=== PATIENT | female | born 1990 | race Caucasian/White ===

== ENCOUNTER 2017-02-01 08:26 | Observation (INO) ==
[2017-02-01] MEDS ORDERED: MORPHINE SULFATE 2mg INJECTION IVP ONE (09:00)
[2017-02-01] MEDS ORDERED: ONDANSETRON 4 MG/2 ML INJECTION IVP ONE ×2 (09:00→10:01)
--- NOTE | 2017-02-01 09:05 | Emergency Department Report ---
Abdominal Pain HPI - General Chief Complaint: Abdominal Pain Stated Complaint: severe abd pain Time Seen by Provider: 02/01/17 08:46 Source: patient Mode of arrival: ambulatory Limitations: no limitations - History of Present Illness HPI narrative: 26yo @ 20wks gestation presents to the ER for evaluation of left flank pain. Pain started at 0330 this AM. It is dull/achy all the time, with colicky crescendo's to 01/26. Pt has never had similar sx. Had some sx last night that resolved with BM x2. Has tried tylenol without relief of sx. Unable to get comfortable. Has urinary frequency without dysuria; little results with urination. Denies PMHx. No prior abd surgery. MD complaint: flank pain Onset (ago): hour(s) Consistency: colicky Location: L flank Severity: severe Severity scale (1-10): 10 Quality: cramping, stabbing, sharp Radiation: LLQ Migration to: no migration Relieving factors: nothing Exacerbating factors: movement Context: other () Associated symptoms: nausea Treatments prior to arrival: other (tylenol) - Related Data LMP (females 10-50): Home Medications Medication Instructions Recorded Confirmed Vits #93/Iron Fum/FA 1 each PO DAILY 11/05/16 02/01/17 [ Formula Tablet] Previous Rx's Medication Instructions Recorded Acetaminophen [Tylenol] 1,000 mg PO Q6HR PRN tablet 02/02/17 Tamsulosin [Flomax] 0.4 mg PO HS #14 cap 02/02/17 Allergies Allergy/AdvReac Type Severity Reaction Status Date / Time No Known Allergies Allergy Verified 02/01/17 08:59 Review of Systems All systems: reviewed and negative except as stated Gastrointestinal: Reports: as per HPI Genitourinary: Reports: as per HPI, urgency, frequency, hematuria (Dark urine). Denies: dysuria PFSH Medical History Updates: Negative Surgical History: Negative - Social History Smoking status: Never smoker Physical Exam - Limitations Limitations: no limitations - General General appearance: alert, in distress - Normal Exams: Head:: Normocephalic without trauma Eyes:: Pupils are PERRLA w/ EOMI, No scleral icterus, irritation, or foreign bodies noted ENMT:: No facial trauma, nasal exudates, pharyngeal erythema, or exudates are noted Neck:: Full range of motion, without adenopathy Chest/Respirations:: Clear all simons, with good airflow, and symmetry bilaterally Cardiovascular:: Regular rate and rhythm, without murmur or gallop, Pulses 2+ all extremities, capillary refill, <2 seconds all extremities Abdomen:: Bowel sounds positive, soft, non-tender, non-distended (Gravid), no hepatosplenomegaly, masses or bruits noted Lymphatic:: No lymphadenopathy Musculoskeletal:: No tenderness, or deformity noted Integumentary:: No rashes, hives, or bruising noted Neurological:: Patient is alert, and oriented Psychiatric:: Patient exhibits, appropriate attention - Abdominal Exam Abdominal exam: Present: other (Dop Tones 144) Course - Consultations Consultation #1: Dr. Haskins: Will review US and call back to discuss mgmt. Pt does have a mild hydro; would prefer to avoid stent placement due to increase risk of calcification during . Recommends admission to OB for IVF and pain control and flomax. Will consult while inpt and determine whether need to stent. Time: 10:13 Consultation #2: Dr. Madison: Will admit for pain control. Time: 10:37 Abdominal Pain - MDM Narrative Medical decision making narrative: Pt with obstructing ureteral stone. Urologist recommends avoiding stent unless absolutely necessary. OB will admit for pain control/obs. Pt voiced understanding of dx, prognosis, tx, and f/u need. - Differential Diagnosis Differential diagnosis: Likely: abdominal pain, calculus of kidney, constipation , gastroenteritis, small bowel obstruction - Medical Records Attestation: I reviewed the patient's medical records. - Lab Data Attestation: I reviewed the patient's lab results. Result diagrams: 02/01/17 09:13 02/01/17 09:13 Lab Results 02/01/17 Range/Units 08:46 Ur Collection Type Urine, clean catch Urine Color Yellow (YELLOW) Urine Clarity Clear Urine pH 8.5 A (5.0-8.0) Ur Specific [place] 1.020 (1.015-1.025) Urine Protein Negative (NEGATIVE) Urine Glucose (UA) Negative (NEGATIVE) Urine Ketones Negative (NEGATIVE) Urine Occult Blood Negative (NEGATIVE) Urine Nitrate Negative (NEGATIVE) Urine Bilirubin Negative (NEGATIVE) Urine Urobilinogen 0.2 (NORMAL) EU/DL Ur Leukocyte Esterase Negative (NEGATIVE) Urinalysis Comment Microscopic not ind. - Radiology Data Attestation: I reviewed the patient's radiology results. Renal US: Findings: Patient showed an unremarkable appearance to the right kidney. No obstruction, mass or cyst is seen. Right-sided ureteral jet is identified. Left kidney is showing moderate obstructive changes with no visualized ureteral jet. I could not see a definitive stone however, the findings would be at least supportive of potential obstructive changes on the left. In the right renal collecting structures seem to be more prominently dilated than the left. Impression: 1. Right side seemed unremarkable. 2. Moderate obstructive uropathy identified on the left side with no visualized ureteral jet identified. 3. Findings called ordering ER clinician when study provided. Disposition Clinical Impression: urolithiasis Disposition: [facility] [place] Condition: Improved - Seen By: physician
[2017-02-01] MEDS: SALINE FLUSH 10ml SYRINGE IVF PRN ×2 (09:11→10:08)
--- OUTSIDE RECORDS SUMMARY | 2017-02-01 09:14 | External Medical Summary ---
:1990 Author Organization [facility] Address [address] [place], [place] [id number] Care Team Providers Name Role Phone Adelso Ordonez Unavailable Unavailable PROBLEMS Unknown Problems ALLERGIES Unknown Allergies SOCIAL HISTORY No smoking Hx information available PLAN OF CARE VITAL SIGNS MEDICATIONS Unknown Medications RESULTS No Results PROCEDURES No Known procedures IMMUNIZATIONS No Known Immunizations
--- OUTSIDE RECORDS SUMMARY | 2017-02-01 09:14 | External Medical Summary ---
:1990 Author Organization [facility] Address [address] [place], [place] [id number] Care Team Providers Name Role Phone Adelso Ordonez Unavailable Unavailable PROBLEMS Unknown Problems ALLERGIES Unknown Allergies SOCIAL HISTORY No smoking Hx information available PLAN OF CARE VITAL SIGNS MEDICATIONS Unknown Medications RESULTS No Results PROCEDURES No Known procedures IMMUNIZATIONS No Known Immunizations
--- OUTSIDE RECORDS SUMMARY | 2017-02-01 09:14 | External Medical Summary ---
:1990 Author Organization [facility] Address [address] [place] [address] Care Team Providers Name Role Phone Dayana Senior Unavailable Unavailable PROBLEMS Type Condition ICD9-CM Code [id number] Onset Condition SNOMED Code Code Dates Status Assessment Strep J02.0 Apr, Active [id number] pharyngitis 2016 ALLERGIES Substance Reaction Event Type Date Status N.K.D.A. Unknown Non Drug Allergy Apr, Unknown SOCIAL HISTORY No smoking Hx information available PLAN OF CARE VITAL SIGNS Temperature 98 degrees Fahrenheit 2016-04-22 Heart Rate 71 /min 2016-04-22 Height 5 ft 6.5 in in 2016-04-22 Weight 99.2 lbs 2016-04-22 BMI 15.77 kg/m2 2016-04-22 Head Circumference 99 in 2016-04-22 Blood pressure systolic 90 mm Hg 2016-04-22 Blood pressure diastolic 50 mm Hg 2016-04-22 MEDICATIONS Medication Instructions Dosage Frequency Start End Date Duration Status Date Iron 20 mg Active Amoxicillin 500 Orally every 12 1 capsule 12h Apr, Apr, 10 day(s) Active MG hrs 2016 2016 Vitamin D-3 Orally Once a 1 capsule 24h Active 1000 UNIT day RESULTS No Results PROCEDURES Procedure Date Ordered Related Diagnosis Body Site Office Visit, New Pt., Level 3 Apr 22, 2016 IMMUNIZATIONS No Known Immunizations
--- NOTE | 2017-02-01 09:52 | Ultrasound Report ---
Indication: Left flank pain; suspect stone US renal BI: Comparison: None Technique: Real-time and color flow imaging provided Findings: Patient showed an unremarkable appearance to the right kidney. No obstruction, mass or cyst is seen. Right-sided ureteral jet is identified. Left kidney is showing moderate obstructive changes with no visualized ureteral jet. I could not see a definitive stone however, the findings would be at least supportive of potential obstructive changes on the left. In the right renal collecting structures seem to be more prominently dilated than the left. Impression: 1. Right side seemed unremarkable. 2. Moderate obstructive uropathy identified on the left side with no visualized ureteral jet identified. 3. Findings called ordering ER clinician when study provided. .
[2017-02-01] MEDS ORDERED: HYDROMORPHONE 2 MG/ML INJECTION IVP ONE (10:00)
[2017-02-01] MEDS ORDERED: NS 1,000 ML IV ONE (10:33)
[2017-02-01] MEDS ORDERED: HYDROMORPHONE 2 MG TABLET PO PRN (12:29)
[2017-02-01] MEDS ORDERED: HYDROMORPHONE PCA 30mg/30ml VIAL IV PRN (12:35)
[2017-02-01] MEDS ORDERED: ONDANSETRON ODT 4 MG TABLET PO PRN (12:41)
[2017-02-01] MEDS: NS 1,000 ML IV SCH ×2 (12:45→21:06)
--- NOTE | 2017-02-01 12:48 | OB/GYN History & Physical ---
- History of Present Illness Date of Admission: 02/01/17 11:02 Reason for Admission: other (Nephrolithiasis) History of Present Illness: 26 y/o at 20w and 3 days gestational age by LMP c/w with sono presented to ED with acute onset of left flank pain and abdominal pain not controlled by conservative measures at home. Patient is see a manager cargo [place] where she has received routine PNC since about 9 weeks. She was noted to have a Ralph antibody with a low titer. she has seen Dr. Kavin SPRING in [place] and had follow up and sono. Her has been other torres uncomplicated per patient. She states she was awakened with left sided pain around 3 am last night tried to walk it off and Tylenol and had little relief with increasing pain. She had her bring her [place] [facility] [place] where she had a Sono that showed no ureteral jet on the left and mild hydronephrosis. Case was discussed with Dr. Araiza Urologist. Pt denies History of Nephrolithiasis Expected Date of Delivery: 05/28/17 : 2 Para: 0 - OB History #1 Delivery Type: spontaneous Complications: None Review of Systems - Constitutional Constitutional: Absent: fever(s) - Cardiovascular Cardiovascular: Absent: chest pain, palpitations - Respiratory Respiratory: Absent: cough, dyspnea, wheezing - Gastrointestinal Gastrointestinal: Absent: change in bowel habits, constipation, diarrhea, nausea , vomiting - Genitourinary Genitourinary: Present: flank pain Menstruation: Present: as per HPI - Musculoskeletal Musculoskeletal: Present: back pain. Absent: arthralgias - Integumentary/Breasts Integumentary: Absent: pruritus, rash - Psychiatric Psychiatric: Absent: anxiety, depression PFSH Medical History Updates: Negative Surgical History: Negative - Social History Smoking status: Never smoker Substance use type: does not use Alcohol intake frequency: does not drink Household members: spouse Medications Home Medications Medication Instructions Recorded Confirmed Type Vits #93/Iron Fum/FA 1 each PO DAILY 11/05/16 02/01/17 History [ Formula Tablet] Allergies Allergy/AdvReac Type Severity Reaction Status Date / Time No Known Allergies Allergy Verified 02/01/17 08:59 Exam Vital signs: Temperature 98.3 F 02/01/17 08:30 Pulse Rate 60 02/01/17 11:45 Respiratory Rate 14 02/01/17 11:45 Blood Pressure 87/51 02/01/17 11:45 Pulse Oximetry 99 02/01/17 11:45 - Constitutional Present: mild distress - Neck Exam Present: supple, full ROM - Respiratory Exam Present: CTA bilaterally - Cardiovascular Exam Present: RRR - Abdominal Exam Present: soft Comments: Gravid - Extremities Exam Extremities: Present: no edema, non tender - Neurological Exam Present: alert, oriented X3 - Skin Exam Present: intact - Psychiatric Exam Present: normal affect, 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 - Labs CBC & Chem 7: 02/01/17 09:13 02/01/17 09:13 Labs: UA Ur Collection Type Urine, clean catch 02/01/17 08:46 Urine Color Yellow (YELLOW) 02/01/17 08:46 Urine pH 8.5 (5.0-8.0) A 02/01/17 08:46 Ur Specific [place] 1.020 (1.015-1.025) 02/01/17 08:46 Urine Protein Negative (NEGATIVE) 02/01/17 08:46 Urine Glucose (UA) Negative (NEGATIVE) 02/01/17 08:46 Urine Ketones Negative (NEGATIVE) 02/01/17 08:46 Urine Occult Blood Negative (NEGATIVE) 02/01/17 08:46 Urine Nitrate Negative (NEGATIVE) 02/01/17 08:46 Urine Bilirubin Negative (NEGATIVE) 02/01/17 08:46 Urine Urobilinogen 0.2 EU/DL (NORMAL) 02/01/17 08:46 Ur Leukocyte Esterase Negative (NEGATIVE) 02/01/17 08:46 - Imaging and Cardiology US - abdomen Status: image reviewed by me Antepartum Assessment and Plan (1) Nephrolithiasis Current visit: Yes Status: Acute Plan: Other (Admit for Fluids, Pain control, Urology consult. Dismissal when pain controlled) (2) Current visit: Yes Status: Acute Plan: Other (Has care with provider. Will treat for current admission then RTC with provider. Discussed Ralph Antibodies and Risk to has seen [facility])
[2017-02-01 15:34] VITALS: O2SAT 97
[2017-02-01 15:35] VITALS: BMI 16.7
[2017-02-01 16:13] VITALS: PULSE 64; RESP 16
[2017-02-01] MEDS: ACETAMINOPHEN 500 MG TABLET PO PRN ×2 (17:05→22:24)
[2017-02-01] MEDS ORDERED: TAMSULOSIN 0.4 MG CAPSULE PO SCH (21:00)
--- NOTE | 2017-02-01 21:58 | Urology Consult Note ---
Urology HPI - Data of Consult Consult date: 02/01/17 Requesting Physician: Deion Madison DO Primary Care Provider: OTHER Family Provider: OTHER - Consult Narrative Reason for consult: L flank pain History of present illness: 26F, 20 weeks of gestation, who woke up last night with severe L flank pain . Denies fever or chills. Denies GH but reports increased urinary frequency for the last 2 days. No previous h/o kidney stones. Renal US done shows mild L hydronephrosis. No hydroureter. Her pain is currently well controlled. UA is WNL Review of Systems All systems: reviewed and no additional remarkable complaints except as stated ( noted in HPI) PFSH Patient Stated Medical History Migraine Yes: does not take medications, but sees chiropractor Other HEENT Yes: wears reading glasses Anemia Yes: takes iron supplement Herpes No Maternal Gestational Diabetes No Now Yes: EDC 05/2017 Medical History Updates: Negative Surgical History: Negative - Social History Smoking status: Never smoker Medications Home Medications Medication Instructions Recorded Confirmed Type Vits #93/Iron Fum/FA 1 each PO DAILY 11/05/16 02/01/17 History [ Formula Tablet] Allergies Allergy/AdvReac Type Severity Reaction Status Date / Time No Known Allergies Allergy Verified 02/01/17 08:59 Urology Results - Labs CBC & Chem 7: 02/01/17 09:13 02/01/17 09:13 Urology Exam Vital signs: Temperature 98.0 F 02/01/17 15:27 Pulse Rate 64 02/01/17 15:27 Respiratory Rate 16 02/01/17 15:27 Blood Pressure 101/66 02/01/17 15:27 Pulse Oximetry 97 02/01/17 12:00 - HEENT Exam Head: Present: normocephalic - Neck Exam Present: supple - Respiratory Exam Absent: dyspnea - Abdominal/Groin Exam Present: soft Comments: L CVA tenderness - Extremities Exam Present: full ROM - Neurological Exam Present: alert, oriented X3 Assessment and Plan 26F , 20 weeks gestation, L flank pain with mild L hydro Plan: - Indications for stenting would be intractable pain, infection or elevated creat. Rec to conservative treatment for now. IVF+ pain control+ flomax. - If patient doesnt require narcotics for 24hrs , ok to DC home - Will need to f/u with urology after delivery for CT scan to r/o stones. Hospital Course Summary Disclaimer: The visit summary below is not to be considered part of the above Progress Note.
[2017-02-02] MEDS: ACETAMINOPHEN 500 MG TABLET PO PRN ×2 (04:33→10:44)
[2017-02-02] MEDS: NS 1,000 ML IV SCH (05:22)
[2017-02-02 06:52] VITALS: BP 93/58; TEMP 98.1
--- NOTE | 2017-02-02 10:25 | OB/GYN Progress Note ---
[employer] DOCUMENT PREPARER Progress Note - Subjective Today's Date: 02/02/17 26 y/o at 20 wga with nephrolithiasis. Pain controlled with tylenol, denies F/C, N/C. Tolerating PO. - Objective Vital signs: Temperature 98.1 F 02/02/17 06:51 Pulse Rate 64 02/02/17 06:51 Respiratory Rate 16 02/02/17 06:51 Blood Pressure 93/58 02/02/17 06:51 Pulse Oximetry 97 02/02/17 06:51 Urine Output: good General: alert and oriented Cardiovascular: regular rate,rhythm Respiratory: non-labored Abdomen: soft Abdomen: Gravid, Mild TTP left flank Extremities: non-tender Edema: none Laboratory Result: 02/01/17 09:13 02/01/17 09:13 Labs: UA Ur Collection Type Urine, clean catch 02/01/17 08:46 Urine Color Yellow (YELLOW) 02/01/17 08:46 Urine pH 8.5 (5.0-8.0) A 02/01/17 08:46 Ur Specific [place] 1.020 (1.015-1.025) 02/01/17 08:46 Urine Protein Negative (NEGATIVE) 02/01/17 08:46 Urine Glucose (UA) Negative (NEGATIVE) 02/01/17 08:46 Urine Ketones Negative (NEGATIVE) 02/01/17 08:46 Urine Occult Blood Negative (NEGATIVE) 02/01/17 08:46 Urine Nitrate Negative (NEGATIVE) 02/01/17 08:46 Urine Bilirubin Negative (NEGATIVE) 02/01/17 08:46 Urine Urobilinogen 0.2 EU/DL (NORMAL) 02/01/17 08:46 Ur Leukocyte Esterase Negative (NEGATIVE) 02/01/17 08:46 - Assessment and Plan (2) Assessment and Plan: Nephrolithiasis- Pain controlled with PO meds, VSS, AF. No N/V. Plan dismissal to home with Flomax. F/U with urology for CT at end of . - will continue to receive care from Director Business Travel. Qualifiers: Weeks of gestation: 20 weeks Qualified Code(s): Z3A.20 - 20 weeks gestation of
--- NOTE | 2017-02-02 10:29 | Discharge Instructions ---
Discharge Plan - Med Rec/Dispo Referrals/Follow Up: Austin Haskins MD [Physician] - [place] Instructions: Kidney Stones (DC) Prescriptions: New Acetaminophen [Tylenol] 1,000 mg PO Q6HR PRN tablet PRN Reason: Fever /Headache /Pain Tamsulosin [Flomax] 0.4 mg PO HS #14 cap Continue Vits #93/Iron Fum/FA [ Formula Tablet] 1 each PO DAILY - Disposition 01 Discharged Home, Self-Care
== END 2017-02-02 10:48 | disposition home or self-care (01) ==
LOC: ED 08:26 → SRG 08:26 → MC 11:45
PROVIDERS: ADMIT Obstetrics & Gynecology; ATTEND Obstetrics & Gynecology